=== PATIENT | female | born 1960 | race Caucasian/White ===

== ENCOUNTER 2016-07-21 17:01 | Emergency (ER) | payer BC ==
[2016-07-21 18:00] LABS: APPEARANCE CLEAR (CLEAR); BILIRUBIN NEGATIVE (NEGATIVE); COLOR STRAW (YELLOW); GLUCOSE NEGATIVE (NEGATIVE); KETONE NEGATIVE (NEGATIVE); LEUKOCYTE ESTERASE NEGATIVE (NEGATIVE); NITRITE NEGATIVE (NEGATIVE); PROTEIN NEGATIVE (NEGATIVE); UROBILINOGEN NORMAL (NORMAL)
[2016-07-21 18:11] LABS: UDS - AMPHET NEGATIVE QUAL (NEGATIVE); UDS - BARB NEGATIVE QUAL (NEGATIVE); UDS - BENZO NEGATIVE QUAL (NEGATIVE); UDS - COCAINE NEGATIVE QUAL (NEGATIVE); UDS - METH NEGATIVE QUAL (NEGATIVE); UDS - OPIATE NEGATIVE QUAL (NEGATIVE); UDS - PCP NEGATIVE QUAL (NEGATIVE); UDS - THC POSITIVE QUAL (NEGATIVE)
[2016-07-21 18:26] LABS: BASOPHILS 0.4 % (0.0-2.0); EOSINOPHILS 1.8 % (0-7); HEMATOCRIT 42.1 % (36.0-48.0); HEMOGLOBIN 14.6 g/dL (12-16); IMMATURE GRANULOCYTES 0.1 % (0-5); LYMPHOCYTES 39.5 % (15-50); MCH 32.8 pg (26.0-34.0); MCHC 34.7 g/dL (31.0-37.0); MCV 94.6 fL (80.0-100.0); MEAN PLATELET VOLUME 10.7 fL (7.4-10.4); MONOCYTES 5.6 % (2-11); NEUTROPHILS 52.6 % (40-80); PLATELET COUNT 186 10x3/uL (130-400); RBC 4.45 10x6/uL (4.00-5.40); RDW 11.8 % (11.5-14.5); WBC 8.2 10x3/uL (4.8-10.8)
[2016-07-21 18:40] LABS: CREATINE KINASE 101 UL (21-215)
[2016-07-21 18:42] LABS: TROPONIN-I < 0.017 ng/mL (0.000-0.060)
== END 2016-07-21 19:48 | disposition home or self-care (01) ==
LOC: D.ER 17:01
PROVIDERS: Nurse Practitioner Family
DX: I10 Essential (primary) hypertension (principal); M54.5 Low back pain; M62.838 Other muscle spasm; I45.10 Unspecified right bundle-branch block